=== PATIENT | female | born 1960 | race Caucasian/White ===

== ENCOUNTER → 2017-03-26 | Outpatient (CLI) | payer BC ==
[~2017-03-26] MED LIST: ADVAIR 100/501 DISK IH; AMBIEN10 MG PO; DUONEB 2.5-0.5 M3 ML AEROSOL; FLEXERIL10 MG PO; FLEXERIL5 MG PO; LODINE XL500 MG PO; PERCOCET 2.51 TABLET PO; PRAVASTATIN SOD20 MG PO; PROAIR HFA8.5 GM IH; VITAMIN D31000 UNI2 PO
[2017-03-26 09:13] LABS: HEMATOCRIT 44.3 % (36.0-46.0); MCH 30.8 PG (29.0-34.0); MCHC 33.2 G/DL (30.0-36.0); MCV 92.9 FL (83-99); MEAN PLAT.VOLUME 9.2 uM^3 (9.5-12.4); PLATELET COUNT 318 K/uL (156-360); RBC DIS.WIDTH-CV 12.8 % (11.8-14.6); RBC DIS.WIDTH-SD 44.1 % (39-53); RED BLOOD COUNT 4.77 M/uL (3.80-5.20); WHITE BLOOD COUNT 9.7 K/uL (4.1-10.2)
[2017-03-26 09:23] LABS: PTT 27.7 (25-32)
== END | disposition home or self-care (01) ==
LOC: OPR 08:31 → EDSTATUS 09:00
PROVIDERS: Internal Medicine Pulmonary Disease
PROC: 0BBG3ZX Excision of Left Upper Lung Lobe, Percutaneous Approach, Diagnostic (ICD-10-PCS; principal; 2017-03-26)
DX: R91.1 Solitary pulmonary nodule (principal); F17.200 Nicotine dependence, unspecified, uncomplicated; M19.90 Unspecified osteoarthritis, unspecified site; G47.33 Obstructive sleep apnea (adult) (pediatric); Z98.1 Arthrodesis status
CPT/HCPCS: 71010; 77012; 85027; 85610; 85730; 88305; 88312; J2405; J3010